=== PATIENT | male | born 1980 | race Caucasian/White ===

== ENCOUNTER 2024-10-23 11:21 | Outpatient (CLI) | payer BC, SELFPAY ==
[2024-10-23 12:01] LABS: Basophils # 0.1 10^3/uL (0.0-0.1); Basophils % 0.8 %; Eosinophils # 0.2 10^3/uL (0.0-0.8); Hematocrit 44.2 % (37-53); Lymphocytes # 2.1 10^3/uL (0.8-4.8); Lymphocytes % 28.7 %; Mean Corpuscular HGB Conc 34.6 g/dL (30-55); Mean Corpuscular Hemoglobin 31.2 pg (27-33); Mean Corpuscular Volume 90.2 fl (82-101); Mean Platelet Volume 9.4 fL (7.4-10.4); Monocytes # 0.7 10^3/uL (0.2-0.9); Monocytes % 9.3 %; Neutrophils # 4.27 10^3/uL (1.8-7.7); Neutrophils % 58.1 %; Nucleated Red Blood Cells % 0 %; Platelet Count 228 10^3/cmm (157-399); White Blood Count 7.35 10^3/uL (3.29-11.43)
[2024-10-23 12:23] LABS: Alanine Aminotransferase 45 U/L (0-41); Albumin Level 4.5 g/dL (3.5-5.2); Alkaline Phosphatase 56 U/L (40-130); Aspartate Amino Transferase 28 U/L (0-40); Bilirubin Direct 0.12 mg/dL (0.00-0.30); Globulin 2.7 g/dL (1.3-4.6); Total Bilirubin 0.3 mg/dL (0.15-1.2); Total Protein 7.2 g/dL (6.6-8.7)
[2024-10-23 13:16] LABS: Estradiol 18.9 pg/mL (7.63-42.6); Prostate Specific Antigen 0.506 ng/mL (0-4)
[2024-10-27 03:55] LABS: Albumin 4.7 g/dL (3.6-5.1); Sex Hormone Binding Globulin 19 nmol/L (10-50); Testosterone, Bioavailable 672.8 ng/dL (110.0-575.0); Testosterone, Free 313.9 pg/mL (46.0-224.0); Testosterone, Total , MS 1244 ng/dL (250-1100)
== END 2024-10-23 11:22 | disposition home or self-care (01) ==
LOC: LAB 11:25
PROVIDERS: Visit Provider Nurse Practitioner Family
DX: E29.1 Testicular hypofunction (principal); R53.82 Chronic fatigue, unspecified
CPT/HCPCS: 36415; 80076; 82040; 82670; 84153; 84270; 84403; 85025